=== PATIENT | male | born 1990 | race Caucasian/White ===

== ENCOUNTER 2017-03-17 15:24 | Emergency (ER) | payer OTHER ==
[~2017-03-17] VITALS: Ht 175.3 cm; Wt 80.3 kg
[2017-03-17 15:27] VITALS: Ht 175.3 cm; Wt 80.3 kg
--- NOTE | 2017-03-17 15:49 | EMERGENCY ROOM VISIT NOTE ---
History First contact with patient: 15:35 Chief Complaint: FOREIGNBODY ANY BODY PART Stated Complaint: SWALLOWED GLASS,SCREWS AND BOLTS History of Present Illness The patient is a 26 year old male who presents to the Emergency Room via private vehicle accompanied by 2 correctional officers referred from the local [facility] with complaints of "swallowed glass, screws and bolts". The patient states that he has been hearing voices, and was on a medication strike and had his medications revoked which he takes to calm the voices inside his head. He states this happened at the end of January. He states that since then he has had increasing thoughts to harm himself provoked by thoughts inside his head/voices that tell him to harm himself. Last thoughts of harming himself from voices was at 11:30 AM today. He notes to do so he created superficial cuts to the left forearm as well as swallowed glass, bolts and also screws. He states that he did also swallow bolts last night. He notes left upper quadrant abdominal pain since ingesting these. He has had no bowel movement since that time but notes no rectal bleeding. He does have a history of swallowing foreign bodies to include razor blade in the past. He denies thoughts at this current time to harm himself or other people, and notes the last thought was 11:30 AM. Review of Systems A complete 10-point Review of Systems was discussed with the patient, with pertinent positives and negatives listed in the History of Present Illness. All remaining Review of Systems questions can be considered negative unless otherwise specified. Past Medical/Surgical History Ingestion of foreign body and subjective schizophrenia Family History Noncontributory Social History Smoking Status: Current Every Day Smoker Pt. is incarcerated. Current/Historical Medications Scheduled Mirtazapine (Mirtazapine), 45 MG PO HS Nortriptyline (Pamelor), 25 MG PO HS Quetiapine Fumarate (Seroquel), 200 MG PO HS Scheduled PRN Albuterol Hfa (Ventolin Hfa), 2-4 PUFFS INH Q8 PRN for Shortness of Breath Physical Exam Vital Signs Date Time Temp Pulse Resp B/P (MAP) Pulse Ox O2 Delivery O2 Flow Rate FiO2 03/17/17 18:18 36.9 65 18 113/72 98 Nasal Cannula 03/17/17 16:57 36.9 63 16 113/71 98 Room Air 1/4/18 15:27 37.1 69 16 137/80 94 Room Air Physical Exam VITAL SIGNS - Vital signs and nursing notes were reviewed. Stable. GENERAL -26-year-old male appearing his stated age who is in no acute distress. Communicates well with provider and answers questions appropriately. SKIN - Without rashes. No petechial rashes. There is evidence of small superficial cuts to the patient's left forearm. These are superficial and does not extend deeply. Do not require repair. HEAD - NC/AT. EYES - PERRL with EOMI bilaterally. Sclera anicteric. EARS - No deformities of external structures noted on gross examination bilaterally. NOSE - Midline and without cyanosis. No epistaxis or purulent drainage noted. MOUTH/OROPHARYNX - Without perioral cyanosis. No blood within the posterior pharynx. No evidence of cuts to the mouth. NECK - Neck with FROM. Supple to palpation. No lymphadenopathy noted. No nuchal rigidity. LUNGS - Chest wall symmetric without accessory muscle use, intercostals retractions, or central cyanosis. Normal vesicular breath sounds CTA B/L. No wheezes, rales, or rhonchi appreciated. CARDIAC - RRR with S1/S2. No murmur, rubs, or gallops appreciated. ABDOMEN - Abdominal contour normal without pulsations or visible masses. BS normoactive all four quadrants. No hepatosplenomegaly, or ascites noted. LUQ abd tenderness. EXTREMITIES - No clubbing or peripheral cyanosis. No pretibial edema present. + 5/5 strength noted in UE/LE bilaterally. NEUROLOGIC - Cranial nerves II through XII grossly intact. Sensory intact to light touch throughout. PSYCH - A&O, and cooperates fully with examiner. Pt is very pleasant and interacts well with examiner. Medical Decision & Procedures ER Provider Diagnostic Interpretation: ABDOMEN 2VIEW W/PA CHEST RTN CLINICAL HISTORY: 26 years-old Male presenting with Swallowed glass, screws and bolts. TECHNIQUE: PA view of the chest and supine and upright views of the abdomen were obtained. COMPARISON: None. FINDINGS: Cardiomediastinal silhouette normal. Lungs and pleural spaces clear. Radiopaque foreign bodies project over the region of the gastric antrum consistent with the given history. Glass would not be expected to be radiopaque. No more distal radiopaque foreign body. Moderate stool burden throughout the colon. Nonobstructive bowel gas pattern. No gross pneumoperitoneum. Allowing for bowel gas and stool, no calcifications to suggest nephrolithiasis. Osseous structures normal. IMPRESSION: 1. No acute cardiopulmonary disease. 2. Radiopaque foreign bodies in the region of the gastric antrum consistent with the given history. Glass would not be expected to be radiopaque. No more distal radiopaque foreign body. Electronically signed by: Naga Michelle M.D. 03/17/2017 4:39 PM Dictated Date/Time: 03/17/2017 4:[address] ABD/PELVIS IV CONTRAST ONLY CLINICAL HISTORY: Ingested foreign body. Possible intra-abdominal injury. COMPARISON STUDY: Conventional radiographic study dated 03/17/2017 TECHNIQUE: Following the IV administration of 114 mL of Optiray-320, CT scan of the abdomen and pelvis was performed from the lung bases to the proximal femurs. Images are reviewed in the axial, sagittal, and coronal planes. IV contrast was administered without complication. A dose lowering technique was utilized adhering to the principles of ALARA. CT DOSE: 324.61 mGy.cm FINDINGS: Lower chest: The heart is normal in size and configuration, without pericardial effusion. The lung bases and pleural spaces are clear. Liver: The contrast-enhanced liver is normal in size, contour, and attenuation. There is no intrahepatic biliary ductal dilatation. The hepatic veins and portal veins are patent. Gallbladder: Unremarkable. Spleen: Normal in size and attenuation. Pancreas: Unremarkable. Adrenal glands: Unremarkable. Kidneys: There is symmetric renal cortical enhancement. The kidneys are normal in size without hydronephrosis. Bowel: There are no transition zones indicate bowel obstruction. There are multiple metallic foreign bodies within the central abdomen, likely located within possible small bowel loops. No free intraperitoneal air is visualized. There is no pneumatosis identified. Radiographic follow-up to document passage is recommended. Peritoneum: There is no intraperitoneal free air or abdominal ascites. Vasculature: The abdominal aorta is normal in course and caliber. Adenopathy: None. Pelvic viscera: The bladder, and pelvic viscera are unremarkable. Skeletal structures: No destructive osseous lesions are seen. IMPRESSION: 1. Multiple foreign bodies are visualized in the abdomen. These appear to represent a combination of bolts, nuts and screws. 2. The foreign bodies appear to be located within jejunal bowel loops. No pneumatosis is visualized. There is no ascites. There is no free intraperitoneal air. Radiographic follow-up to document passage is recommended. 3. There is no current evidence of bowel obstruction. Electronically signed by: Tano Estrada M.D. 03/17/2017 5:41 PM Dictated Date/Time: 03/17/2017 5:36 PM Laboratory Results 03/17/17 15:50 Red Blood Count 5.23, Mean Corpuscular Volume 87.2, Mean Corpuscular Hemoglobin 31.0, Mean Corpuscular Hemoglobin Concent 35.5, Mean Platelet Volume 9.7, Neutrophils (%) (Auto) 42.3, Lymphocytes (%) (Auto) 36.0, Monocytes (%) (Auto) 6.5, Eosinophils (%) (Auto) 13.9, Basophils (%) (Auto) 1.0, Neutrophils # (Auto ) 2.46, Lymphocytes # (Auto) 2.10, Monocytes # (Auto) 0.38, Eosinophils # (Auto ) 0.81, Basophils # (Auto) 0.06 03/17/17 15:50 Test 03/17/17 15:50 White Blood Count 5.83 K/uL (4.8-10.8) Red Blood Count 5.23 M/uL (4.7-6.1) Hemoglobin 16.2 g/dL (14.0-18.0) Hematocrit 45.6 % (42-52) Mean Corpuscular Volume 87.2 fL (80-100) Mean Corpuscular Hemoglobin 31.0 pg (25-34) Mean Corpuscular Hemoglobin Concent 35.5 g/dl (32-36) Platelet Count 214 K/uL (130-400) Mean Platelet Volume 9.7 fL (7.4-10.4) Neutrophils (%) (Auto) 42.3 % Lymphocytes (%) (Auto) 36.0 % Monocytes (%) (Auto) 6.5 % Eosinophils (%) (Auto) 13.9 % Basophils (%) (Auto) 1.0 % Neutrophils # (Auto) 2.46 K/uL (1.4-6.5) Lymphocytes # (Auto) 2.10 K/uL (1.2-3.4) Monocytes # (Auto) 0.38 K/uL (0.11-0.59) Eosinophils # (Auto) 0.81 K/uL (0-0.5) Basophils # (Auto) 0.06 K/uL (0-0.2) RDW Standard Deviation 38.8 fL (36.4-46.3) RDW Coefficient of Variation 12.1 % (11.5-14.5) Immature Granulocyte % (Auto) 0.3 % Immature Granulocyte # (Auto) 0.02 K/uL (0.00-0.02) Anion Gap 5.0 mmol/L (3-11) Est Creatinine Clear Calc Drug Dose 120.0 ml/min Estimated GFR () 129.3 Estimated GFR (Non- 111.6 BUN/Creatinine Ratio 16.3 (10-20) Calcium Level 9.0 mg/dl (8.5-10.1) Total Bilirubin 0.7 mg/dl (0.2-1) Aspartate Amino Transf (AST/SGOT) 13 U/L (15-37) Alanine Aminotransferase (ALT/SGPT) 25 U/L (12-78) Alkaline Phosphatase 45 U/L (45-117) Total Protein 8.3 gm/dl (6.4-8.2) Albumin 4.3 gm/dl (3.4-5.0) Globulin 4.0 gm/dl (2.5-4.0) Albumin/Globulin Ratio 1.1 (0.9-2) Salicylates Level < 1.7 mg/dl (2.8-20) Acetaminophen Level < 2 ug/ml (10-30) Medical Decision Patient was seen and evaluated as above. He presents to us today status post ingestion of foreign bodies. He notes he did this because voices were telling him to kill himself/harm himself therefore he ingested these. He tells me that this will continue if he does not get moved to a different unit in this facility. X-ray reveals formed body. She noted some discomfort in the epigastric region therefore did obtain a CT scan to rule out perforation. This was negative. I do recommend that he does have abdominal radiographs performed to follow this until he passes these. I also spoke with an individual from his facility as they called to discuss where he should be placed. I recommended watch for suicide, as well as until he passes these. I informed him upon his gesture he made here by telling me that this will continue until he is placed back were he belongs in the facility. At this time he appears stable for outpatient management. Case was discussed with the attending physician. Salicylate and acetaminophen were negative. These were ordered in the event he may have also attempted to consume other medications. There is no continue leukocytosis or anemia. Metabolic panel reveals no evidence of kidney or liver failure. They were educated upon management, educated upon not swallowing foreign objects and were discharged to the facility in good condition. There are also superficial cuts to the patient left forearm were cleansed with normal saline. These will not require any closure. In evaluation treatment this patient following differential diagnoses were entertained: Pneumoperitoneum, ingestion foreihn body, suicidal ideation, among others. Impression Primary Impression: Foreign body ingestion Additional Impressions: Hearing voices Suicidal behavior Departure Information Dispostion Home / Self-Care Condition GOOD Referrals All NELSON (PCP) Patient Instructions My [facility] Additional Instructions Patient was seen in the emergency department for ingestion of foreign body. He notes this was because he had suicidal voices in his head. I recommend suicide watch for this patient, and radiographic follow-up to ensure passage of the ingested foreign bodies. Please return with any new/concerning symptoms. Problem Qualifiers
[2017-03-17] MEDS ORDERED: VNTHFA/IN INH (15:52)
[2017-03-17] MEDS ORDERED: NORT25CA PO (15:52)
[2017-03-17] MEDS ORDERED: QUET1TAB34 PO (15:52)
[2017-03-17] MEDS ORDERED: MIRT45TA3 PO (15:52)
[2017-03-17 16:05] LABS: BASO ABS # 0.06 K/uL (0-0.2); EOS % 13.9 %; EOS ABS # 0.81 K/uL (0-0.5); HEMATOCRIT 45.6 % (42-52); HEMOGLOBIN 16.2 g/dL (14.0-18.0); IG# 0.02 K/uL (0.00-0.02); MEAN CELL VOLUME 87.2 fL (80-100); MEAN CORPUSCULAR HGB CONC 35.5 g/dl (32-36); MEAN PLATELET VOLUME 9.7 fL (7.4-10.4); MONO % 6.5 %; MONO ABS # 0.38 K/uL (0.11-0.59); NEUT % 42.3 %; NEUT ABS # 2.46 K/uL (1.4-6.5); PLATELET COUNT 214 K/uL (130-400); RED CELL DISTRIBUTION WIDTH CV 12.1 % (11.5-14.5); RED CELL DISTRIBUTION WIDTH SD 38.8 fL (36.4-46.3); WHITE BLOOD COUNT 5.83 K/uL (4.8-10.8)
--- NOTE | 2017-03-17 16:40 | DIAGNOSTIC IMAGING REPORT ---
ABDOMEN 2VIEW W/PA CHEST RTN CLINICAL HISTORY: 26 years-old Male presenting with Swallowed glass, screws and bolts. TECHNIQUE: PA view of the chest and supine and upright views of the abdomen were obtained. COMPARISON: None. FINDINGS: Cardiomediastinal silhouette normal. Lungs and pleural spaces clear. Radiopaque foreign bodies project over the region of the gastric antrum consistent with the given history. Glass would not be expected to be radiopaque. No more distal radiopaque foreign body. Moderate stool burden throughout the colon. Nonobstructive bowel gas pattern. No gross pneumoperitoneum. Allowing for bowel gas and stool, no calcifications to suggest nephrolithiasis. Osseous structures normal. IMPRESSION: 1. No acute cardiopulmonary disease. 2. Radiopaque foreign bodies in the region of the gastric antrum consistent with the given history. Glass would not be expected to be radiopaque. No more distal radiopaque foreign body. Electronically signed by: Naga Michelle M.D. 03/17/2017 4:39 PM Dictated Date/Time: 03/17/2017 4:37 PM
[2017-03-17 16:44] LABS: ALBUMIN 4.3 gm/dl (3.4-5.0); CREATININE 0.95 mg/dl (0.60-1.40); POTASSIUM 3.8 mmol/L (3.5-5.1)
[2017-03-17 16:47] LABS: TOTAL PROTEIN 8.3 gm/dl (6.4-8.2)
--- NOTE | 2017-03-17 17:43 | DIAGNOSTIC IMAGING REPORT ---
CT ABD/PELVIS IV CONTRAST ONLY CLINICAL HISTORY: Ingested foreign body. Possible intra-abdominal injury. COMPARISON STUDY: Conventional radiographic study dated 03/17/2017 TECHNIQUE: Following the IV administration of 114 mL of Optiray-320, CT scan of the abdomen and pelvis was performed from the lung bases to the proximal femurs. Images are reviewed in the axial, sagittal, and coronal planes. IV contrast was administered without complication. A dose lowering technique was utilized adhering to the principles of ALARA. CT DOSE: 324.61 mGy.cm FINDINGS: Lower chest: The heart is normal in size and configuration, without pericardial effusion. The lung bases and pleural spaces are clear. Liver: The contrast-enhanced liver is normal in size, contour, and attenuation. There is no intrahepatic biliary ductal dilatation. The hepatic veins and portal veins are patent. Gallbladder: Unremarkable. Spleen: Normal in size and attenuation. Pancreas: Unremarkable. Adrenal glands: Unremarkable. Kidneys: There is symmetric renal cortical enhancement. The kidneys are normal in size without hydronephrosis. Bowel: There are no transition zones indicate bowel obstruction. There are multiple metallic foreign bodies within the central abdomen, likely located within possible small bowel loops. No free intraperitoneal air is visualized. There is no pneumatosis identified. Radiographic follow-up to document passage is recommended. Peritoneum: There is no intraperitoneal free air or abdominal ascites. Vasculature: The abdominal aorta is normal in course and caliber. Adenopathy: None. Pelvic viscera: The bladder, and pelvic viscera are unremarkable. Skeletal structures: No destructive osseous lesions are seen. IMPRESSION: 1. Multiple foreign bodies are visualized in the abdomen. These appear to represent a combination of bolts, nuts and screws. 2. The foreign bodies appear to be located within jejunal bowel loops. No pneumatosis is visualized. There is no ascites. There is no free intraperitoneal air. Radiographic follow-up to document passage is recommended. 3. There is no current evidence of bowel obstruction. Electronically signed by: Tano Estrada M.D. 03/17/2017 5:41 PM Dictated Date/Time: 03/17/2017 5:36 PM
[2017-03-17] MEDS ORDERED: OPTIRAY 320 IV PRN (17:45)
[2017-03-17 18:18] VITALS: BP 113/72; PULSE 65; TEMP 36.9; O2SAT 98
== END 2017-03-17 18:41 | disposition home or self-care (01) ==
LOC: C.EDB 15:27
DX: T18.9XXA Foreign body of alimentary tract, part unspecified, initial encounter (principal); X58.XXXA Exposure to other specified factors, initial encounter; R44.0 Auditory hallucinations; R45.851 Suicidal ideations; F20.9 Schizophrenia, unspecified; F17.200 Nicotine dependence, unspecified, uncomplicated; Z79.899 Other long term (current) drug therapy